=== PATIENT | male | born 1975 | race African-American/Black ===

== ENCOUNTER 2022-01-02 21:49 | Emergency (ER) | payer OTHER ==
[~2022-01-02] VITALS: Ht 182.9 cm; Wt 107.0 kg
[2022-01-02 21:56] VITALS: BP 110/64
--- NOTE | 2022-01-02 23:14 | NUR ---
PT TAKEN TO BED 8
--- NOTE | 2022-01-02 23:28 | NUR ---
46 Y/O M BIB SELF FOR UTI SYMPTOMS/BACK PAIN 02/17. PT STATES HES BEEN HAVING LOWER BACK PAIN, PAIN DURING URINATION . DENIES D BUT HAD EPISODES OF NAUSEA AND VOMITING; SKIN IS PINK/WARM/DRY; AAOX4 WITH EVEN AND STEADY GAIT; PT DENIES ANY FEVER, CP, SOB, OR COUGH AT THIS TIME; PT ALSO STATES HE WOULD LIKE TO GET TESTED FOR HIV BECAUSE WHENHE WAS IN [facility] AN INMATE BIT HIM AND HE WAS KNOWN TO HAVE HIV SOCIAL HX:DENIES DRUGE USE , VAPES. RECENTLY RELEASED FROM [facility] BUT DENIES HOMELESSNESS HX:SCHIZOPHRENIA ALLERGIES : NKA
[2022-01-02 23:58] LABS: APPEARANCE,URINE CLEAR (CLEAR); BILIRUBIN,URINE NEGATIVE (NEGATIVE); BLOOD, URINE NEGATIVE (NEGATIVE); COLOR,URINE YELLOW (YELLOW); LEUKOCYTE ESTERASE ,URINE NEGATIVE (NEGATIVE); NITRITE, URINE NEGATIVE (NEGATIVE); UGLUCOSE NEGATIVE (NEGATIVE)
--- NOTE | 2022-01-03 01:58 | NUR ---
Patient appears to be resting comfortably in bed. Vital Signs within normal limits. Respirations even and unlabored.
[2022-01-03] MEDS ORDERED: BENZ-315 PO (02:40)
[2022-01-03] MEDS ORDERED: DIVA500E1 PO (02:40)
[2022-01-03] MEDS ORDERED: RISP2TAB75 PO (02:40)
--- NOTE | 2022-01-03 03:00 | NUR ---
Patient discharged with v/s stable. Written and verbal after care instructions given and explained. Patient alert, oriented and verbalized understanding of instructions. Ambulatory with steady gait. All questions addressed prior to discharge. ID band removed. Patient advised to follow up with PMD. Rx of CONGENTIN, DEPAKOTE, RISPERIDONE given. Opportunity to ask questions provided and answered.
--- NOTE | 2022-01-03 03:01 | NUR ---
The patient's care was reviewed and supervised by Amy Anderson RN.
[2022-01-03 05:40] VITALS: BP 112/66
== END 2022-01-03 03:00 | disposition home or self-care (01) ==
LOC: MED 21:49
DX: F20.9 Schizophrenia, unspecified (principal); R30.0 Dysuria; R35.0 Frequency of micturition; F17.200 Nicotine dependence, unspecified, uncomplicated; Z79.899 Other long term (current) drug therapy
CPT/HCPCS: 36415; 81003; 87086; 99283